=== PATIENT | female | born 1985 | race Caucasian/White ===

== ENCOUNTER 2018-12-10 04:08 | Emergency (ER) | payer MEDICAID ==
[~2018-12-10] VITALS: Ht 171.4 cm; Wt 68.0 kg
--- NOTE | 2018-12-10 04:34 | NUR ---
BIBS C/O L FLANK PAIN WITH N/V, PAIN BURNING, FREQUENCY UPON URINATION X3 DAYS
[2018-12-10] MEDS ORDERED: KETOROLAC TROMETHAMINE INJ 30 MG/ML VIAL ONE (04:36)
[2018-12-10 04:46] LABS: APPEARANCE,URINE Clear (CLEAR); BILIRUBIN,URINE Negative (NEGATIVE); BLOOD, URINE Trace-intact Ery/uL (NEGATIVE); COLOR,URINE Yellow (YELLOW); KETONES,URINE Negative (NEGATIVE); LEUKOCYTE ESTERASE ,URINE Negative (NEGATIVE); NITRITE, URINE Negative (NEGATIVE); PH,URINE 5.5 (5.0-8.0); PROTEIN,URINE Negative (NEGATIVE); UGLUCOSE Negative (NEGATIVE); UROBILINOGEN,URINE 0.2 EU/dL (0.2)
[2018-12-10] MEDS ORDERED: KETOROLAC TROMETHAMINE INJ 60 MG/2 ML VIAL IM ONE (05:00)
[2018-12-10 05:15] LABS: BACTERIA,URINE Few /HPF (None Seen); RBC,URINE 0-2 /HPF (0-2); SQUAMOUS EPITHELIAL CELL,UR Few /HPF (None Seen)
--- NOTE | 2018-12-10 05:47 | NUR ---
PT BACK FROM CT
[2018-12-10 06:29] VITALS: BP 124/81
--- NOTE | 2018-12-10 06:29 | NUR ---
Patient discharged to home in stable condition. Written and verbal after care instructions given. Patient verbalizes understanding of instruction.
== END 2018-12-10 06:30 | disposition home or self-care (01) ==
LOC: ER 04:13
DX: M54.9 Dorsalgia, unspecified (principal); R10.30 Lower abdominal pain, unspecified; F17.200 Nicotine dependence, unspecified, uncomplicated
CPT/HCPCS: 74176; 81001; 84703; 87086; 96372; 99284; J1885; 81000-TC; 87186-TC

== ENCOUNTER 2018-12-29 10:58 | Emergency (ER) | payer MEDICAID ==
[~2018-12-29] VITALS: Ht 170.2 cm; Wt 68.0 kg
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
[2018-12-29] MEDS ORDERED: HYDROCODONE/APAP 5/325MG 1 EACH TABLET ONE (11:29)
[2018-12-29] MEDS ORDERED: ONDANSETRON 4 MG TAB.RAPDIS ONE (11:30)
[2018-12-29] MEDS ORDERED: HYDROCODONE/APAP 5/325MG 1 EACH TABLET PO ONE (11:30)
[2018-12-29] MEDS ORDERED: ONDANSETRON 4 MG TAB.RAPDIS PO ONE (11:30)
--- NOTE | 2018-12-29 11:45 | NUR ---
PT BACK FROM CT. MEDICATED PER ERMD ORDER, PT CHRISTIAN WELL.
--- NOTE | 2018-12-29 13:30 | NUR ---
Patient discharged to home in stable condition. Written and verbal after care instructions given. Patient verbalizes understanding of instruction.
[2018-12-29 14:09] VITALS: BP 124/78
== END 2018-12-29 13:30 | disposition home or self-care (01) ==
LOC: ER 11:00
DX: S01.511A Laceration without foreign body of lip, initial encounter (principal); S80.02XA Contusion of left knee, initial encounter; S80.811A Abrasion, right lower leg, initial encounter; R51 Headache; F10.10 Alcohol abuse, uncomplicated; F17.200 Nicotine dependence, unspecified, uncomplicated; Y90.9 Presence of alcohol in blood, level not specified; W20.8XXA Other cause of strike by thrown, projected or falling object, initial encounter; Y93.K1 Activity, walking an animal; Y92.89 Other specified places as the place of occurrence of the external cause; Y99.8 Other external cause status
CPT/HCPCS: 70450; 99284; A6403; Q0162

== ENCOUNTER 2019-09-25 04:02 | Emergency (ER) | payer MEDICAID ==
[~2019-09-25] VITALS: Ht 170.2 cm; Wt 65.8 kg
[2019-09-25 04:07] VITALS: BP 125/87
[2019-09-25] MEDS ORDERED: OXYMETAZOLINE HCL NASAL SPRAY 30 ML BOTTLE NS ONE ×2 (04:17→04:30)
== END 2019-09-25 04:38 | disposition home or self-care (01) ==
LOC: ER 04:03
DX: R04.0 Epistaxis (principal); F17.200 Nicotine dependence, unspecified, uncomplicated

== ENCOUNTER 2020-02-11 02:41 | Emergency (ER) | payer MEDICAID ==
[~2020-02-11] VITALS: Ht 170.2 cm; Wt 65.8 kg
--- NOTE | 2020-02-11 03:10 | NUR ---
PT BIBSELF C/O LOWER BACK PAIN S/P FALL X5 DAYS AGO. DENIES HEAD INJURY. SKIN INTACT. NOTED TACHYCARDIA ON ARRIVAL, MD AWARE. PT AAOX4. RESPIRATIONS EVEN AND UNLABORED. NO ACUTE DISTRESS NOTED AT THIS TIME. PLACED ON CONTINUOUS FORGE HEATER AND PULSE OX, WILL CONTINUE TO MONITOR
--- NOTE | 2020-02-11 03:15 | NUR ---
URINE COLLECTED AND SENT TO LAB
--- NOTE | 2020-02-11 03:15 | NUR ---
IV INITIATED RAC 20G. LABS DRAWN FROM SITE. SALES DESIGNER AT BEDSIDE FOR COLLECTION. IV INTACT AND PATENT, PLACED ON SALINE LOCK
[2020-02-11 03:22] LABS: BASOPHILS % (AUTO) 0.5 % (0.0-2.0); BILIRUBIN,URINE NEGATIVE (NEGATIVE); BLOOD, URINE NEGATIVE Ery/uL (NEGATIVE); COLOR,URINE YELLOW (YELLOW); HEMATOCRIT 41 % (33-45); HEMOGLOBIN 13.4 g/dL (11.5-14.8); KETONES,URINE NEGATIVE (NEGATIVE); LEUKOCYTE ESTERASE ,URINE MODERATE (NEGATIVE); LYMPHOCYTES # (AUTO) 2.7 /CMM (0.8-4.8); LYMPHOCYTES % (AUTO) 47.8 % (20.0-44.0); MEAN CORPUSCULAR HGB CONC 33 g/dl (31.0-36.0); MEAN CORPUSCULAR VOLUME 106 fL (82-100); MONOCYTES # (AUTO) 0.4 /CMM (0.1-1.30); MONOCYTES % (AUTO) 7.5 % (2.0-12.0); NEUTROPHILS # (AUTO) 2.4 /CMM (1.8-8.9); NEUTROPHILS % (AUTO) 43.2 % (43.0-81.0); NITRITE, URINE NEGATIVE (NEGATIVE); PLATELET COUNT (AUTO) 297 /CMM (150-450); PROTEIN,URINE NEGATIVE (NEGATIVE); RED BLOOD CELL COUNT(AUTO) 3.83 MIL/uL (4.0-5.2); UGLUCOSE NEGATIVE (NEGATIVE); UROBILINOGEN,URINE 0.2 EU/dL (0.2); WHITE BLOOD COUNT (AUTO) 5.6 K/uL (4.3-11.0)
[2020-02-11] MEDS ORDERED: IV NS 0.9% 1,000 ML IV ONE (03:30)
[2020-02-11 03:32] LABS: APPEARANCE,URINE HAZY (CLEAR)
[2020-02-11 03:35] LABS: BACTERIA,URINE Moderate /HPF (None Seen); RBC,URINE 0-2 /HPF (0-2); SQUAMOUS EPITHELIAL CELL,UR Moderate /HPF (None Seen)
[2020-02-11 03:36] LABS: CALCIUM, SERUM 8.5 mg/dL (8.5-10.1); CREATININE 0.7 mg/dL (0.6-1.3); POTASSIUM 2.9 mmol/L (3.5-5.1)
[2020-02-11 03:41] LABS: ALBUMIN 3.9 g/dL (3.4-5.0); BILIRUBIN,DIRECT 0.3 mg/dL (0.0-0.2); BILIRUBIN,TOTAL 0.4 mg/dL (0.2-1.0); TOTAL PROTEIN, SERUM 7.5 g/dL (6.4-8.2)
[2020-02-11] MEDS ORDERED: KETOROLAC TROMETHAMINE INJ 30 MG/ML VIAL ONE (03:41)
--- NOTE | 2020-02-11 03:47 | NUR ---
RADIOLOGY AT BEDSIDE FOR XRAY
[2020-02-11] MEDS ORDERED: KETOROLAC TROMETHAMINE INJ 30 MG/ML VIAL IV ONE (04:00)
--- NOTE | 2020-02-11 05:35 | NUR ---
Patient discharged to home in stable condition. Written and verbal after care instructions given. Patient verbalizes understanding of instruction.IV removed. Catheter intact and site benign. Pressure and 4x4 applied to site. No bleeding noted.Pt ambulatory with a steady gait
[2020-02-11 05:36] VITALS: BP 127/70
== END 2020-02-11 05:37 | disposition home or self-care (01) ==
LOC: ER 02:46
DX: S30.0XXA Contusion of lower back and pelvis, initial encounter (principal); R94.31 Abnormal electrocardiogram [ECG] [EKG]; F17.200 Nicotine dependence, unspecified, uncomplicated; W10.8XXA Fall (on) (from) other stairs and steps, initial encounter; Y93.89 Activity, other specified; Y92.89 Other specified places as the place of occurrence of the external cause; Y99.8 Other external cause status
CPT/HCPCS: 36415; 72110; 80048; 80076; 80307; 81001; 84703; 85025; 87077; 87086; 87186; 93005; 96361; 96374; 99285; J1885; J7030; 81000-TC

== ENCOUNTER 2020-10-17 04:08 | Emergency (ER) | payer MEDICAID ==
[~2020-10-17] VITALS: Ht 170.2 cm; Wt 68.0 kg
--- NOTE | 2020-10-17 05:08 | NUR ---
RADIOLOGY AT BEDSIDE
[2020-10-17] MEDS ORDERED: OXYC5TAB3 PO (05:53)
[2020-10-17] MEDS ORDERED: oxyCODONE/APAP (5/325 MG) 1 UDTAB TABLET ONE (05:58)
[2020-10-17] MEDS ORDERED: HYDROCODONE/APAP 5/325MG TABLET PO ONE (06:00)
[2020-10-17] MEDS ORDERED: HYDROCODONE/APAP 5/325MG TABLET ONE (06:06)
--- NOTE | 2020-10-17 06:08 | NUR ---
Patient discharged to home in stable condition. Written and verbal after care instructions given. Patient verbalizes understanding of instruction.
--- NOTE | 2020-10-17 06:08 | NUR ---
Patient provided with teachings of incentive spirometer and other discharge teachings.
--- NOTE | 2020-10-17 06:08 | NUR ---
Percocet 5/325mg wasted with Speedy SALAZAR.
[2020-10-17 06:25] VITALS: BP 119/76
== END 2020-10-17 06:25 | disposition home or self-care (01) ==
LOC: ER 04:11
DX: S22.41XA Multiple fractures of ribs, right side, initial encounter for closed fracture (principal); S93.491A Sprain of other ligament of right ankle, initial encounter; S83.8X1A Sprain of other specified parts of right knee, initial encounter; W19.XXXA Unspecified fall, initial encounter; Y93.89 Activity, other specified; Y92.89 Other specified places as the place of occurrence of the external cause; Y99.8 Other external cause status
CPT/HCPCS: 71100-TC; 73564-TC; 73610-TC

== ENCOUNTER 2020-11-04 23:26 | Emergency (ER) | payer MEDICAID ==
[~2020-11-04] VITALS: Ht 154.9 cm; Wt 68.0 kg
[~2020-11-04 23:26] MED LIST: OXYC5TAB3 PO
--- NOTE | 2020-11-05 | NUR ---
PATIENT BIBSELF C/O UMBILICAL PAIN W/ PALPALBLE GOLFBALL BELOW UMILICUS W/ VOMIT x2 WEEKS. ALSO C/O BLE PAIN WITH RADIATION UP TO KNEES. PATIENT A/O X 4 RR EVEN AND UNLABORED, NO SIGNS OF SOB NOTED. PATIENT CONNCETED TO SINTER FEEDER AND POX.
--- NOTE | 2020-11-05 00:23 | NUR ---
URINE COLLECTED AND SEND TO LAB
[2020-11-05 00:31] LABS: BILIRUBIN,URINE LARGE (NEGATIVE); COLOR,URINE AMBER (YELLOW); LEUKOCYTE ESTERASE ,URINE Small (NEGATIVE); NITRITE, URINE Positive (NEGATIVE); PH,URINE 5.5 (5.0-8.0); PROTEIN,URINE 30 mg/dl (NEGATIVE); UGLUCOSE Negative (NEGATIVE)
[2020-11-05 00:33] LABS: BASOPHILS % (AUTO) 0.4 % (0.0-2.0); EOSINOPHILS % (AUTO) 0.6 % (0.0-6.0); HEMATOCRIT 31 % (33-45); HEMOGLOBIN 10.2 g/dL (11.5-14.8); LYMPHOCYTES # (AUTO) 0.9 K/uL (0.8-4.8); LYMPHOCYTES % (AUTO) 13.6 % (20.0-44.0); MEAN CORPUSCULAR HGB CONC 34 g/dl (31.0-36.0); MEAN CORPUSCULAR VOLUME 119 fL (82-100); MONOCYTES # (AUTO) 0.5 K/uL (0.1-1.30); MONOCYTES % (AUTO) 7.7 % (2.0-12.0); NEUTROPHILS # (AUTO) 5.4 K/uL (1.8-8.9); NEUTROPHILS % (AUTO) 77.7 % (43.0-81.0); PLATELET COUNT (AUTO) 226 K/uL (150-450); RED BLOOD CELL COUNT(AUTO) 2.56 MIL/uL (4.0-5.2); WHITE BLOOD COUNT (AUTO) 6.9 K/uL (4.3-11.0)
--- NOTE | 2020-11-05 00:40 | NUR ---
PATIENT TAKEN TO CT
[2020-11-05 00:42] LABS: CALCIUM, SERUM 8.3 mg/dL (8.5-10.1); CREATININE 0.7 mg/dL (0.6-1.3); POTASSIUM 3.2 mmol/L (3.5-5.1)
[2020-11-05 00:54] LABS: ALBUMIN 2.3 g/dL (3.4-5.0); BILIRUBIN,DIRECT 1.7 mg/dL (0.0-0.2); BILIRUBIN,TOTAL 2.5 mg/dL (0.2-1.0); TOTAL PROTEIN, SERUM 6.4 g/dL (6.4-8.2)
[2020-11-05 01:23] LABS: BACTERIA,URINE Many /HPF (None Seen); CALCIUM OXALATE CRYSTALS,UR Many /HPF (None Seen); SQUAMOUS EPITHELIAL CELL,UR Moderate /HPF (None Seen); WBC,URINE 21-50 /HPF (0-3)
[2020-11-05 01:24] LABS: MUCUS,URINE Moderate /LPF (None Seen)
[2020-11-05] MEDS ORDERED: KETOROLAC TROMETHAMINE INJ 30 MG/ML VIAL IV ONE (02:00)
[2020-11-05] MEDS ORDERED: KETOROLAC TROMETHAMINE INJ 30 MG/ML VIAL ONE (02:01)
[2020-11-05] MEDS ORDERED: NITR100C6 PO (02:47)
[2020-11-05] MEDS ORDERED: OXYC5CAP18 PO (02:47)
[2020-11-05 03:05] VITALS: BP 122/54
--- NOTE | 2020-11-05 03:07 | NUR ---
Patient discharged to home in stable condition. RX and Written and verbal after care instructions given. Patient verbalizes understanding of instruction.
[2020-11-05 04:31] LABS: LYMPHOCYTES % (MANUAL) 12 % (16-48); MONOCYTES % (MANUAL) 8 % (0-11.0); NEUTROPHILS % (MANUAL) 80 (42-76)
[2020-11-05 06:28] LABS: BAND % (MANUAL) 0 % (0.0-5.0)
== END 2020-11-05 03:07 | disposition home or self-care (01) ==
LOC: ER 23:33
DX: K43.9 Ventral hernia without obstruction or gangrene (principal); N39.0 Urinary tract infection, site not specified; R20.2 Paresthesia of skin; F10.10 Alcohol abuse, uncomplicated; F17.200 Nicotine dependence, unspecified, uncomplicated; Y90.9 Presence of alcohol in blood, level not specified; Z79.899 Other long term (current) drug therapy
CPT/HCPCS: 36415; 72131; 74176; 80048; 80076; 81001; 83690; 84703; 85007; 85025; 87086; 96374; 99285; J1885; 87186-TC

== ENCOUNTER 2020-12-05 01:05 | Emergency (ER) | payer MEDICAID ==
[~2020-12-05] VITALS: Ht 170.2 cm; Wt 68.0 kg
[~2020-12-05 01:05] MED LIST changes: +NITR100C6 PO; +OXYC5CAP18 PO
--- NOTE | 2020-12-05 01:10 | NUR ---
Pt bibself c/o rt arm pain s/p fall d/t neuropathy in feet. Pt aaox4 breathing evenly and unlabored. Upon assessment, pt has bruising on forearm and palm. Pt able to move fingers and wrist, but with pain. Pt took aleive, but felt no relief. Pt attached to monitor and pox. Pt given blanket and call light within reach
[2020-12-05] MEDS ORDERED: IBUPROFEN 400 MG TABLET ONE (01:45)
--- NOTE | 2020-12-05 01:55 | NUR ---
xray at bedside
[2020-12-05] MEDS ORDERED: IBUPROFEN 400 MG TABLET PO ONE (02:00)
[2020-12-05] MEDS ORDERED: IBUP-1957 PO (02:14)
--- NOTE | 2020-12-05 02:17 | NUR ---
Patient discharged to home in stable condition. Written and verbal after care instructions given. Patient verbalizes understanding of instruction. Pt wheeled chaired to car.
[2020-12-05 03:14] VITALS: BP 115/78
== END 2020-12-05 03:15 | disposition home or self-care (01) ==
LOC: ER 01:05
DX: S50.11XA Contusion of right forearm, initial encounter (principal); G62.9 Polyneuropathy, unspecified; F31.9 Bipolar disorder, unspecified; F17.200 Nicotine dependence, unspecified, uncomplicated; Z79.899 Other long term (current) drug therapy; W19.XXXA Unspecified fall, initial encounter; Y93.89 Activity, other specified; Y92.89 Other specified places as the place of occurrence of the external cause; Y99.8 Other external cause status
CPT/HCPCS: 73090-TC